=== PATIENT | male | born 1960 | race Caucasian/White ===

== ENCOUNTER 2024-07-02 08:15 | Outpatient (CLI) | payer OTHER, SELFPAY | END 2024-07-02 08:16 | disposition home or self-care (01) | LOC: AMB 07-11 14:28 | PROVIDERS: PCP Family Medicine; Visit Provider Family Medicine | DX: R53.83 Other fatigue (principal); M54.9 Dorsalgia, unspecified; R47.81 Slurred speech | CPT/HCPCS: A0425; A0427 ==